=== PATIENT | male | born 1950 | race Caucasian/White ===

== ENCOUNTER 2017-08-15 15:04 | Outpatient (CLI) | payer MEDICARE, OTHER ==
--- NOTE | 2017-08-15 15:42 | XRAY Report ---
THREE VIEW BILATERAL HANDS: 08/15/2017 CLINICAL INDICATION: Osteoarthritis, chronic pain. FINDINGS: AP, lateral, oblique views of the bilateral hands demonstrate right worse than left osteoarthritis. There is no evidence of acute fracture. Tiny metallic foreign bodies are noted in the soft tissues of the left thenar eminence. IMPRESSION: RIGHT WORSE THAN LEFT OSTEOARTHRITIS. TD: 08/15/2017 15:40
== END 2017-08-15 15:05 | disposition home or self-care (01) ==
LOC: DI 15:04
PROVIDERS: ATTEND Specialist
DX: M19.041 Primary osteoarthritis, right hand (principal); M19.042 Primary osteoarthritis, left hand

== ENCOUNTER 2021-06-10 07:38 | Outpatient (CLI) | payer MEDICARE, OTHER ==
--- NOTE | 2021-06-10 08:34 | Ultrasound Report ---
PROCEDURE: Aorta Screening INDICATIONS: SCREENING FOR CARDIOVASCULAR DISORDERS TECHNIQUE: Real time scanning was performed of the aorta and iliac arteries, with image documentatio n. COMPARISON: None. FINDINGS: Aorta: Proximal aortic diameter measures 2.2 x 2.6 cm. Mid-aorta measures 1.7 x 1.6 cm. Distal aor tic diameter is 1.9 x 2.1 cm. Iliac arteries: Right common iliac artery measures 1.2 x 1.0 cm. Left common iliac artery measures 1.1 x 1.0 cm. IMPRESSION: 1.No aneurysmal dilatation of the abdominal aorta. Consider 5 year follow-up. Reviewed by: Ed Fritz MD on 06/10/2021 8:33 AM PST Approved by: Ed Fritz MD on 06/10/2021 8:33 AM PST Station ID: [id number]
== END 2021-06-10 07:39 | disposition home or self-care (01) ==
LOC: DI 07:38
PROVIDERS: ATTEND Internal Medicine
DX: Z13.6 Encounter for screening for cardiovascular disorders (principal)

== ENCOUNTER 2023-06-20 08:00 | Outpatient (CLI) | payer MEDICARE, OTHER | END 2023-06-20 08:01 | disposition home or self-care (01) | LOC: LAB.N 08:00 | PROVIDERS: ATTEND Physician Assistant | DX: U07.1 COVID-19 (principal) ==